=== PATIENT | male | born 1970 | race Caucasian/White ===

== ENCOUNTER 2021-08-01 10:14 | Emergency (ER) | payer MEDICARE, MEDICAID ==
[~2021-08-01] VITALS: Ht 165.1 cm; Wt 95.3 kg
[2021-08-01] MEDS ORDERED: LEVOTHYROXINE175 MCG PO (10:33)
[2021-08-01] MEDS ORDERED: PRAVASTATIN SOD40 MG PO (10:33)
[2021-08-01] MEDS ORDERED: BUSPIRONE HCL10 MG PO (10:33)
[2021-08-01] MEDS ORDERED: ZIPRASIDONE HCL40 MG PO (10:34)
[2021-08-01] MEDS ORDERED: CELECOXIB200 M1 PO (10:34)
[2021-08-01] MEDS ORDERED: METOPROLOL SUCC25 M2 PO (10:35)
[2021-08-01] MEDS ORDERED: BUPROPION HYDR150 M3 PO (10:35)
[2021-08-01] MEDS ORDERED: ESCITALOPRAM OX20 MG PO (10:35)
[2021-08-01] MEDS ORDERED: OLANZAPINE5 MG PO (10:35)
[2021-08-01] MEDS ORDERED: SYMB80 INH (10:36)
[2021-08-01] MEDS ORDERED: VENT7GM INH (10:37)
[2021-08-01 11:03] LABS: URINE AMPHETAMINES < 1000 (1000ng/ml); URINE BARBITURATES < 200 (200ng/ml); URINE BENZODIAZEPINES < 200 (200ng/ml); URINE CANNABINOIDS (THC) < 50 (50ng/ml); URINE COCAINE < 300 (300ng/ml); URINE METHADONE > 300 (300ng/ml); URINE OPIATES < 300 (300ng/ml)
[2021-08-01 11:05] LABS: URINE PHENCYCLIDINE < 25 (25ng/ml)
== END 2021-08-01 10:55 | disposition home or self-care (01) ==
LOC: ED 10:14
PROVIDERS: Emergency Medicine
DX: F11.20 Opioid dependence, uncomplicated (principal); J44.9 Chronic obstructive pulmonary disease, unspecified; Z88.8 Allergy status to other drugs, medicaments and biological substances; Z79.899 Other long term (current) drug therapy

== ENCOUNTER 2021-08-03 11:04 | Emergency (ER) | payer MEDICARE, MEDICAID ==
[~2021-08-03] VITALS: Wt 95.3 kg
[~2021-08-03 11:04] MED LIST: BUPROPION HYDR150 M3 PO; BUSPIRONE HCL10 MG PO; CELECOXIB200 M1 PO; ESCITALOPRAM OX20 MG PO; LEVOTHYROXINE175 MCG PO; METOPROLOL SUCC25 M2 PO; OLANZAPINE5 MG PO; PRAVASTATIN SOD40 MG PO; SYMB80 INH; VENT7GM INH; ZIPRASIDONE HCL40 MG PO
== END 2021-08-03 12:04 | disposition left against medical advice (07) ==
LOC: ED 11:04
DX: Z53.21 Procedure and treatment not carried out due to patient leaving prior to being seen by health care provider (principal)